=== PATIENT | female | born 2000 | race Caucasian/White ===

== ENCOUNTER 2021-08-06 07:24 | Observation (INO) | payer OTHER ==
[2021-08-06] MEDS ORDERED: SODIUM CHLORIDE 1,000 ML IV STA (08:59)
[2021-08-06 09:08] LABS: BASO % 0.3 % (0-2.0); EOS % 0.2 % (0-4.5); HEMOGLOBIN 14.6 GM/dL (10.7-15.3); LYMPH % 13.7 % (8-40); MCH 29.8 pg (25.7-33.7); MEAN CELL VOLUME 87.5 fl (80-96); MEAN PLT VOLUME 8.8 fl (7.5-11.1); MONO % 5.9 % (3.8-10.2); NEUT % 79.9 % (42.8-82.8); PLATELET COUNT 245 10^3/uL (134-434); RBC 4.92 M/mm3 (3.60-5.2); RDW 12.8 % (11.6-15.6); WHITE BLOOD COUNT 10.2 K/mm3 (4.0-10.0)
[2021-08-06 11:13] LABS: HCG,QUALITATIVE URINE Negative
[2021-08-06 11:23] LABS: BLOOD UREA NITROGEN 7.6 mg/dL (7-18); CREATININE 0.6 mg/dL (0.55-1.3)
[2021-08-06 11:24] LABS: CALCIUM 9.4 mg/dL (8.5-10.1)
[2021-08-06 11:25] LABS: ALBUMIN 4.2 g/dl (3.4-5.0); BILIRUBIN,TOTAL 0.3 mg/dL (0.2-1); TOT PROT 8.2 g/dl (6.4-8.2)
[2021-08-06 11:38] LABS: URINE APPEARANCE CLEAR; URINE BILIRUBIN NEGATIVE (NEGATIVE); URINE COLOR YELLOW; URINE GLUCOSE (UA) NEGATIVE (NEGATIVE); URINE KETONE NEGATIVE (NEGATIVE); URINE LEUK ESTERASE NEGATIVE (NEGATIVE); URINE NITRITE NEGATIVE (NEGATIVE); URINE PROTEIN NEGATIVE (NEGATIVE)
[2021-08-06 12:01] LABS: MAGNESIUM 2.1 mg/dL (1.8-2.4)
[2021-08-06] MEDS ORDERED: ASPIRIN 325 MG TABLET PO ONE (16:17)
[2021-08-06] MEDS ORDERED: ASPIRIN 325 MG TABLET ONE (16:21)
[2021-08-06 18:52] LABS: METHADONE, UR NEGATIVE (NEGATIVE); URINE BENZODIAZEPINES NEGATIVE (NEGATIVE)
[2021-08-06 18:53] LABS: COCAINE, UR NEGATIVE (NEGATIVE); OPIATES, URI NEGATIVE (NEGATIVE)
[2021-08-06 18:54] LABS: PHENCYCLIDINE,URINE NEGATIVE (NEGATIVE)
[2021-08-06 19:01] LABS: URINE AMPHETAMINES NEGATIVE (NEGATIVE); URINE BARBITURATES NEGATIVE (NEGATIVE)
[2021-08-07] VITALS: BMI 22.8
[2021-08-07 07:41] LABS: HEMATOCRIT 35.8 % (32.4-45.2); HEMOGLOBIN 12.2 GM/dL (10.7-15.3); MCH 29.5 pg (25.7-33.7); MEAN CELL VOLUME 86.7 fl (80-96); PLATELET COUNT 221 10^3/uL (134-434); RBC 4.12 M/mm3 (3.60-5.2); RDW 12.7 % (11.6-15.6); WHITE BLOOD COUNT 4.7 K/mm3 (4.0-10.0)
[2021-08-07 07:53] LABS: CHLORIDE 109 mmol/L (98-107); SODIUM 139 mmol/L (136-145)
[2021-08-07 07:54] LABS: CALCIUM 8.5 mg/dL (8.5-10.1)
[2021-08-07 07:55] LABS: ANION GAP 7 MMOL/L (8-16); BLOOD UREA NITROGEN 5.3 mg/dL (7-18); CO2 24 mmol/L (21-32); GLUCOSE,RANDOM 86 mg/dL (74-106)
[2021-08-07 07:58] LABS: CREATININE 0.5 mg/dL (0.55-1.3)
[2021-08-07] MEDS: ASPIRIN COATED 81 MG TABLET.EC PO SCH (10:36)
[2021-08-07] MEDS ORDERED: SODIUM CHLORIDE 1,000 ML IV STA (11:43)
[2021-08-07] MEDS: ENOXAPARIN NA (PORCINE) 40 MG/0.4 ML DISP.SYRIN SQ SCH (14:57)
[2021-08-08 07:18] LABS: BASO % 0.8 % (0-2.0); EOS % 0.8 % (0-4.5); HEMATOCRIT 35.9 % (32.4-45.2); HEMOGLOBIN 12.2 GM/dL (10.7-15.3); LYMPH % 50.9 % (8-40); MCH 29.8 pg (25.7-33.7); MCHC 33.8 g/dl (32.0-36.0); MEAN PLT VOLUME 9.2 fl (7.5-11.1); MONO % 8.1 % (3.8-10.2); NEUT % 39.4 % (42.8-82.8); PLATELET COUNT 211 10^3/uL (134-434); RBC 4.08 M/mm3 (3.60-5.2); RDW 12.7 % (11.6-15.6); WHITE BLOOD COUNT 4.8 K/mm3 (4.0-10.0)
[2021-08-08 07:41] LABS: CALCIUM 8.4 mg/dL (8.5-10.1)
[2021-08-08 07:42] LABS: BLOOD UREA NITROGEN 7.6 mg/dL (7-18)
[2021-08-08 07:45] LABS: CREATININE 0.5 mg/dL (0.55-1.3)
[2021-08-08] MEDS: ENOXAPARIN NA (PORCINE) 40 MG/0.4 ML DISP.SYRIN SQ SCH (09:35)
[2021-08-08] MEDS: ASPIRIN COATED 81 MG TABLET.EC PO SCH (09:35)
[2021-08-08 13:27] VITALS: BP 100/60; PULSE 77; TEMP 98.6
== END 2021-08-08 13:15 | disposition home or self-care (01) ==
LOC: JER 07:24 → JERBED 16:28 → J2W 08-07 00:13
PROVIDERS: ADMIT Internal Medicine
PROC: 3E0337Z Introduction of Electrolytic and Water Balance Substance into Peripheral Vein, Percutaneous Approach (ICD-10-PCS; principal; 2021-08-06)
PROC: 3E023GC Introduction of Other Therapeutic Substance into Muscle, Percutaneous Approach (ICD-10-PCS; 2021-08-06)
DX: I24.9 Acute ischemic heart disease, unspecified (principal); I34.0 Nonrheumatic mitral (valve) insufficiency; R07.9 Chest pain, unspecified
CPT/HCPCS: 36415; 71275-TC; 80048; 80053; 80307; 81003; 82553; 83735; 84484; 84703; 85025; 85027; 85651; 87086; 93005; 93010; 93306-TC; 93308; 99285-25; C9803-CS; G0378; Q9967; U0003; U0005